=== PATIENT | male | born 2000 | race Caucasian/White ===

== ENCOUNTER 2019-09-22 08:21 | Inpatient (IN) | payer OTHER ==
[2019-09-22] VITALS (8 sets, daily range): BP systolic 71–179; BP diastolic 39–86
[~2019-09-22] VITALS: Ht 177.8 cm; Wt 70.5 kg
[2019-09-22] MEDS ORDERED: LIDOCAINE 2%HCL (LOCAL ANESTH.) INJ 20ML MDV ONE (08:43)
[2019-09-22] MEDS: MIDAZOLAM DRIP 50 mg/50mL 50 ML IV SCH ×2 (08:47→20:13)
[2019-09-22] MEDS ORDERED: LIDOCAINE 2%HCL (LOCAL ANESTH.) INJ 10ml MDV IJ ONE (09:00)
[2019-09-22] MEDS ORDERED: cefTRIAXone 1GM/50ML D5W 50 ML IV ONE (09:15)
[2019-09-22] MEDS ORDERED: AZITHROMYCIN 500MG/ 250ML 250 ML IV ONE (09:15)
[2019-09-22 09:30] LABS: Urine Bacteria NONE SEEN /hpf (None Seen); Urine Blood TRACE /uL (Negative); Urine Hyaline Cast MOD /lpf (0 - 2); Urine Mucus FEW (None Seen); Urine Specific Gravity 1.022 (1.001-1.035); Urine WBC 4 /hpf (0 - 3)
[2019-09-22 09:34] LABS: Hemoglobin 14.9 g/dL (13.5-17.5); Mean Corpuscular Hemoglobin 30.1 pg (28.0-32.0); Platelet Count (auto) 518 10^3/uL (140-450)
[2019-09-22 09:36] LABS: Hematocrit 47.7 % (41.0-53.0); Mean Corpuscular Hgb Conc. 31.2 g/dL (32.0-36.0); Mean Corpuscular Volume 96.5 fL (80.0-100.0); Red Blood Cells 4.94 10^6/uL (4.5-5.90)
[2019-09-22 09:45] LABS: Albumin 4.2 g/dL (3.4-5.0); Anion Gap 16 (5-15); Blood Alcohol < 3.0 mg/dL (0-5); Blood Urea Nitrogen 25 mg/dL (7-18); Calcium 8.5 mg/dL (8.5-10.1); Carbon Dioxide 20 mmol/L (21-32); Chloride 103 mmol/L (98-107); Glucose 195 mg/dL (74-106); Salicylate < 1.7 mg/dL (2.8-20.0); Sodium 139 mmol/L (136-145); White Blood Cell 32.1 10^3/uL (4.4-10.8)
[2019-09-22 09:46] LABS: Alcohol, Urine < 3.0 mg/dL (0-10); Amphetamine Screen, Urine NEGATIVE (NEGATIVE); Barbiturate Scree,Urine NEGATIVE (NEGATIVE); Benzodiazephine Screen, Urine POSITIVE (NEGATIVE); Cannabinoid Screen, Urine POSITIVE (NEGATIVE); Cocaine Screen, Urine NEGATIVE (NEGATIVE); Opiate Scree,Urine NEGATIVE (NEGATIVE); Phencyclidine Screen, Urine NEGATIVE (NEGATIVE)
[2019-09-22 09:47] LABS: Basophils % (manual) 0 (0.0-2.0); Blast Cells 0; Eosinophils % (manual) 0 (0-7); Metamyelocytes % 0; Myelocytes % 0; Promyelocytes % 0; Reactive Lymphocytes 0
[2019-09-22 09:48] LABS: Alanine Aminotransferase 32 U/L (16-61); Aspartate Aminotransferase 38 U/L (15-37); GFR African American 58 mL/min; GFR Non-African American 48 mL/min
[2019-09-22 09:49] LABS: Alkaline Phosphatase 86 U/L (45-117); Bilirubin, Total 0.4 mg/dL (0.2-1.0); Total Protein 8.3 g/dL (6.4-8.2)
[2019-09-22 09:53] LABS: Acetaminophen < 2.0 ug/mL (10-30)
[2019-09-22] MEDS ORDERED: SODIUM CHLORIDE 0.9% 2,000 ML IV ONE (10:00)
--- NOTE | 2019-09-22 10:40 | NUR ---
TRANSPORTED PT WITH NO INCIDENT REPORTED. PT ON TRANSPORT VENT AND AMBUBAG CONNECTED TO 02 TANK. SPO2 98%. RN AT BEDSIDE. WILL CONTINUE TO MONITOR.
[2019-09-22 10:50] LABS: Band Neutrophils % (manual) 10; Lymphocytes % (manual) 9 (10.0-50.0); Monocytes % (manual) 11 (0-12)
[2019-09-22] MEDS ORDERED: ALBUTEROL SULF 2.5 MG/0.5ML(0.5%) NEB SOLN NEB PRN (11:15)
[2019-09-22] MEDS ORDERED: MORPHINE SULF INJ 2 MG/ML SYRINGE 1ML IV PRN (11:15)
[2019-09-22] MEDS ORDERED: NITROGLYCERIN 0.4 MG SL TAB SL PRN (11:15)
[2019-09-22] MEDS ORDERED: SODIUM CHLORIDE 0.9% 1,000 ML IV ONE ×2 (11:15→14:15)
[2019-09-22] MEDS: SODIUM CHLORIDE 0.9% 1,000 ML IV SCH ×2 (12:16→18:23)
[2019-09-22] MEDS ORDERED: ACETAMINOPHEN 650 MG RECT SUPP PR ONE (12:30)
[2019-09-22] MEDS ORDERED: DANTROLENE SODIUM IV PRN ×4 (13:00→13:45)
[2019-09-22] MEDS ORDERED: ACETAMINOPHEN 650 MG RECT SUPP PR PRN (13:15)
[2019-09-22] MEDS ORDERED: DANTROLENE SODIUM IV ONE (13:30)
[2019-09-22] MEDS ORDERED: NOREPINEPHRINE 8 MG/250ML KIT 250 ML IV ONE (13:36)
[2019-09-22] MEDS: NOREPINEPHRINE 8 MG/250ML KIT 250 ML IV SCH ×2 (13:42→23:11)
[2019-09-22] MEDS: ALBUTEROL SULF 2.5 MG/0.5ML(0.5%) NEB SOLN NEB SCH ×2 (13:48→18:00)
[2019-09-22] MEDS: CLINDAMYCIN 600MG IV 50 ML IV SCH ×2 (14:25→22:01)
[2019-09-23] VITALS (80 sets, daily range): BP systolic 89–145; BP diastolic 22–85
[2019-09-23] MEDS: MIDAZOLAM DRIP 50 mg/50mL 50 ML IV SCH ×4 (00:48→18:30)
[2019-09-23] MEDS: SODIUM CHLORIDE 0.9% 1,000 ML IV SCH ×3 (00:53→21:39)
[2019-09-23] MEDS: ALBUTEROL SULF 2.5 MG/0.5ML(0.5%) NEB SOLN NEB SCH ×4 (01:13→18:14)
[2019-09-23 05:55] LABS: Basophils # (auto) 0 10 ^3/uL (0-0.2); Basophils % (auto) 0.1 % (0.0-2.0); Eosinophils # (auto) 0 10 ^3/uL (0-0.8); Eosinophils % (auto) 0.1 % (0.0-7.0); Hematocrit 44.2 % (41.0-53.0); Hemoglobin 14.5 g/dL (13.5-17.5); Lymphocytes # (auto) 0.8 10 ^3/uL (0.4-5.4); Mean Corpuscular Hemoglobin 30.2 pg (28.0-32.0); Mean Corpuscular Hgb Conc. 32.7 g/dL (32.0-36.0); Mean Corpuscular Volume 92.5 fL (80.0-100.0); Monocytes # (auto) 1.1 10 ^3/uL (0-1.3); Monocytes % (auto) 5.4 % (0.0-12.0); Neutrophils # (auto) 18.7 10 ^3/uL (1.6-8.6); Neutrophils % (auto) 90.4 % (37.0-80.0); Platelet Count (auto) 292 10^3/uL (140-450); Red Blood Cells 4.78 10^6/uL (4.5-5.90); Red Cell Distribution Width 12.7 % (11.8-14.3); White Blood Cell 20.6 10^3/uL (4.4-10.8)
--- NOTE | 2019-09-23 06:00 | NUR ---
PATIENT ARRIVED FROM ER VIA GURNEY, TRANSFERRED TO ICU BED AND CONNECTED TO VENTILATOR AND MONITOR. PT IS SEDATED LIGHTLY, RESTLESS AT TIMES, VERSED INCREASED TO 15 MG, MITTENS APPLIED BILAT. INITIAL VS ARE STABLE , RECTAL TEMP 98.9. PT ASSESSED, ORDERS REVIEWED, CARE PLAN INITIATED.
[2019-09-23 06:20] LABS: Potassium 4.5 mmol/L (3.5-5.1)
[2019-09-23 06:30] LABS: BUN/Creatinine Ratio 14.8; Bilirubin, Total 0.7 mg/dL (0.2-1.0); Calcium 7.6 mg/dL (8.5-10.1); Total Protein 5.9 g/dL (6.4-8.2)
[2019-09-23] MEDS: CLINDAMYCIN 600MG IV 50 ML IV SCH ×3 (06:30→21:40)
--- NOTE | 2019-09-23 06:45 | NUR ---
PATIENT ARRIVED FROM ER AT 06;00 AM, VIA GURNEY, TRANSFERRED TO ICU BED, LIGHTLY SEDATED ON VERSED INCREASED TO 14 MG/HR, MITTENS APPLIED DUE TO RESTLESSNESS. RECEIVED REPORT FROM VOLLEYBALL REFEREE, PT CONNECTED TO VENTILATOR AND SPANISH TEACHER. INITIAL VS STABLE. R -TEMP. 99.8
--- NOTE | 2019-09-23 06:51 | NUR ---
PT ASSESSED, IV SITES IDENTIFIED, CARE PLAN INITIATED.
--- NOTE | 2019-09-23 07:00 | NUR ---
Respiratory note: RECEIVED PATIENT ON RENTAL V200 VENT ORALLY INTUBATED WITH AN 8.0 ETT SECURED VIA KAILEY AT THE 24CM MARKING AT THE LIP, AND MECHANICALLY VENTILATED WITH THE CHARTED SETTINGS. SPO2 100%, LUNG SOUNDS CLEAR/DIM T/O, NO SECRETIONS WHEN SUCTIONED. SKIN IS WARM/DRY TO THE TOUCH AND IS INTACT NEAR KAILEY SITE. THERE IS A NGT IN THE RIGHT NARE AND IS SECURED TO THE NOSE. A RIGHT SUBCLAVIAN TRIPLE LUMEN CENTRAL LINE IS PLACED AND PATENT. NO EDEMA NOTED. PATIENT IS UNRESPONSIVE TO BOTH VERBAL/TACTILE STIMULI AND IS SEDATED ON VERSED DRIP. HE IS RESTING COMFORTABLY AND TOLERATING VENT WELL, NO CHANGES MADE. NO NEW AM CXR TO ASSESS. VENT PLUGGED INTO RED OUTLET AND ALL ALARMS ARE SET AND AUDIBLE. WILL CONTINUE TO ASSESS PATIENT WELL VENTILATOR FUNCTION. [employer] RUN INLINE.
--- NOTE | 2019-09-23 07:45 | NUR ---
Dr Singh visits and examines patient - no new orders received.
--- NOTE | 2019-09-23 08:57 | NUR ---
Patient's father phones - given update- verbalized understanding.
--- NOTE | 2019-09-23 09:15 | NUR ---
Crude Unit Operator spoke with patient's mother - received admission information. Addendum: 09/23/19 at 0223 by Marlene Weaver RN Amended: Links added.
[2019-09-23] MEDS: PROPOFOL 100 ML IV SCH ×2 (09:34→18:29)
[2019-09-23] MEDS ORDERED: PROPOFOL 100 ML IV ONE (09:41)
[2019-09-23] MEDS ORDERED: levoFLOXacin 500MG 100 ML IV SCH (10:00)
[2019-09-23] MEDS ORDERED: ENOXAPARIN SOD 30 MG/0.3 ML SYRINGE SC SCH (10:00)
--- NOTE | 2019-09-23 10:00 | NUR ---
Temp 102.0 rectally - Dr Edwards at bedside - orders received, cooling measures started.
[2019-09-23] MEDS: PANTOPRAZOLE 40 MG/10 ML VIAL INJ IV SCH (10:08)
--- NOTE | 2019-09-23 10:15 | NUR ---
ELECTROENCEPHALOGRAM EEG COMPLETED AT BEDSIDE. PRIMARY RN KYLEE AWARE.
[2019-09-23 10:45] LABS: INR 1.54 (0.9-1.15)
[2019-09-23 10:53] LABS: Magnesium 1.4 mg/dL (1.6-2.6); Phosphorus 2.1 mg/dL (2.5-4.90)
--- NOTE | 2019-09-23 10:54 | NUR ---
WOUND CARE NOTE: Wound care in to see patient due to intubation status and skin integrity issue that are noted present on admission. Bedside nurse took photograph of patient's skin issue upon admission for reference. Patient is 18 years old male with admitting diagnosis of Acute Resp Failure, ALOC, Encephalopathy, Drug O.D. Patient is resting in ICU bed in Rm. 111. Patient is intubated,sedated and mechanically ventilated. Patient appears to be in no pain using Rhodes Up Faces Pain Scale. His Joaquin score is 14. Skin assessment done with the assistance of patient's nurse, ELIAS Rosario. Patient's distal sacrum down to coccyx area has 4.5x3cm dark red brown, non-blanchable skin, appears to be Stage 1 pressure injury. No reports of how patient found altered or must have laying on something. Dr. Garcia arrived at bedside to see patient and seen sacral skin issue. Cleansed patient's sacrum with mild soap and water,patted dry, applied TZ Guard cream and covered with Opti foam sacral dressing per MD order. Repositioned patient for comfort facing his Lt side, redistributed pressure points with pillows. Patient tolerated well. ELIAS Rosario at bedside. RECOMMENDATION: Nursing to continue with BID/PRN cleaning and application of Z Guard cream to sacrum per MD order, frequent turning and repositioning schedule as condition permits, redistribute pressure points with pillows, elevate heels on pillows, continue monitoring by wound care while patient is hospitalized. Addendum: 09/23/19 at 1159 by Janet Rios RN Amended: Links added. Addendum: 09/23/19 at 1201 by Janet Rios RN Patient also noted with scabbed abrasion to Rt lateral knee and L dorsal knee, area is clean and dry,left open to air.
--- NOTE | 2019-09-23 11:15 | NUR ---
Dr medel visits and examines patient - orders received.
[2019-09-23 11:19] LABS: Lactic Acid w/Reflex 2.4 mmol/L (0.4-2.0)
[2019-09-23] MEDS ORDERED: SODIUM PHOSPHATES 24 MEQ in SODIUM CHL 0.9% 100 ML IV ONE (12:30)
[2019-09-23] MEDS: ALBUMIN 25% 100 ML IV SCH ×2 (12:35→18:50)
--- NOTE | 2019-09-23 12:45 | NUR ---
Patient's father Lm ramirez - states he spoke with patient's friend about overdose incident - states friend told him that patient "had fentanyl powder on his hands and was licking it off" - approx 15 min later friend states that he went to check on patient and found him unresponsive and making "choking" sounds. Friend states that he put patient in his car to take him to hospital and called 911 and was instructed to stay where he was and that EMS was on the way. Father states that he would continue to talk to patient's "friends" to find out exactly what happened before patient became unresponsive.
[2019-09-23] MEDS: MAGNESIUM SULFATE 1GM/100ML 100 ML IV SCH ×2 (13:00→16:21)
--- NOTE | 2019-09-23 18:30 | NUR ---
Patient's mother phones - update given.
--- NOTE | 2019-09-23 19:00 | NUR ---
Patient repositioned with oral care given - HR sustained at 133-142 - Dr Bashir notified - orders received. BP 132/68 - Levophed stopped. Will continue to monitor HR.
[2019-09-23] MEDS ORDERED: METOPROLOL TARTRATE 1MG/1ML-5ML VIAL IV PRN (19:15)
--- NOTE | 2019-09-23 19:24 | NUR ---
HR remains ST 127-130. Temp 100.6
--- NOTE | 2019-09-23 19:30 | NUR ---
ASSESSMENT RECEIVED REPORT FROM KYLEE GRIFFIN.PATIENT IS DEEPLY SEDATED WITH VERSED 10MG/HR, PROPOFOL 20 MCG/KG/MIN. PUPILS ARE REACTIVE, POSITIVE GAG AND COUGH AND HE WITHDRAWS TO PAIN. PATIENT IS HYPERTHERMIC AND COOLING MEASURES ARE IN PLACE. HE IS ON VENT. LUNGS SOUNDS ARE CLEAR.
[2019-09-24] VITALS (102 sets, daily range): BP systolic 89–143; BP diastolic 27–87
[2019-09-24] MEDS: MIDAZOLAM DRIP 50 mg/50mL 50 ML IV SCH ×3 (00:09→17:54)
[2019-09-24] MEDS: ALBUTEROL SULF 2.5 MG/0.5ML(0.5%) NEB SOLN NEB SCH ×4 (00:21→18:15)
[2019-09-24] MEDS: ALBUMIN 25% 100 ML IV SCH (02:58)
[2019-09-24] MEDS: PROPOFOL 100 ML IV SCH ×2 (03:03→17:54)
--- NOTE | 2019-09-24 04:15 | NUR ---
Patient bathe Patient given complete bath. Skin integrity assessed for any changes. Patient repositioned for comfort.
[2019-09-24 04:31] LABS: Basophils # (auto) 0 10 ^3/uL (0-0.2); Basophils % (auto) 0.1 % (0.0-2.0); Eosinophils # (auto) 0.1 10 ^3/uL (0-0.8); Eosinophils % (auto) 0.7 % (0.0-7.0); Hematocrit 34.5 % (41.0-53.0); Hemoglobin 11.3 g/dL (13.5-17.5); Lymphocytes # (auto) 0.9 10 ^3/uL (0.4-5.4); Lymphocytes % (auto) 7.4 % (10.0-50.0); Mean Corpuscular Hemoglobin 30.3 pg (28.0-32.0); Mean Corpuscular Hgb Conc. 32.7 g/dL (32.0-36.0); Mean Corpuscular Volume 92.6 fL (80.0-100.0); Monocytes # (auto) 0.6 10 ^3/uL (0-1.3); Neutrophils # (auto) 10.7 10 ^3/uL (1.6-8.6); Neutrophils % (auto) 86.8 % (37.0-80.0); Nucleated Red Blood Cells % 0.1 %; Platelet Count (auto) 219 10^3/uL (140-450); Red Blood Cells 3.73 10^6/uL (4.5-5.90); Red Cell Distribution Width 12.5 % (11.8-14.3); White Blood Cell 12.3 10^3/uL (4.4-10.8)
[2019-09-24 04:55] LABS: Potassium 3.4 mmol/L (3.5-5.1)
[2019-09-24 05:01] LABS: Albumin 3.3 g/dL (3.4-5.0); Bilirubin, Total 0.9 mg/dL (0.2-1.0); Total Protein 6.1 g/dL (6.4-8.2)
[2019-09-24] MEDS: SODIUM CHLORIDE 0.9% 1,000 ML IV SCH ×2 (05:45→09:26)
[2019-09-24] MEDS: CLINDAMYCIN 600MG IV 50 ML IV SCH ×3 (05:46→22:21)
[2019-09-24] MEDS: fentaNYL Drip 2500mCg/250mlNS 250 ML IV SCH ×2 (08:12→09:25)
--- NOTE | 2019-09-24 08:35 | NUR ---
DR. SELBY AT BEDSIDE: UPDATE MD UPDATED ON PT'S CURRENT STATUS, LABS AND POC FOR TODAY. MD STATES PATIENT MAY TRY AND DO CPAP TRIAL LATER ON TODAY, IF OKAY WITH DR. FREDERICK. INFORMED ON PT'S TRENDING TEMPERATURES. CONTINUE CARE.
--- NOTE | 2019-09-24 09:20 | NUR ---
DR. FREDERICK AT BEDSIDE: ORDERS MD UPDATED ON PT'S CURRENT STATUS, LABS, CXR AND POC FOR TODAY. ORDERS GIVEN FOR CPAP TRIAL LATER ON TODAY. WILL START WEANING OFF VERSED GTT FIRST, FOR SEDATION, THEN DIPRIVAN. TITRATING SLOWLY TOLERATED. CONTINUE CARE. TALKED WITH Sofia
--- NOTE | 2019-09-24 09:45 | NUR ---
FAMILY CALLED: UPDATE TALKED WITH PATIENT'S FATHER, GETACHEW. UPDATED HIM ON PT'S CURRENT STATUS AND POC FOR TODAY. POSSIBLE CPAP TRIAL LATER ON TODAY. WILL CONTINUE CARE.
[2019-09-24] MEDS: PANTOPRAZOLE 40 MG/10 ML VIAL INJ IV SCH (09:54)
[2019-09-24] MEDS: ENOXAPARIN SOD 30 MG/0.3 ML SYRINGE SC SCH (09:54)
[2019-09-24] MEDS: levoFLOXacin 750MG 150 ML IV SCH (09:54)
--- NOTE | 2019-09-24 12:00 | NUR ---
ALL SEDATION TURNED OFF AT THIS TIME PER DR. VEGA. CPAP TO BE STARTED PRE-PROTOCOL ONCE ABLE TO FOLLOW COMMANDS. WILL CONTINUE TO MONITOR CLOSELY. R.T. INFORMED. CONTINUE CARE.
--- NOTE | 2019-09-24 12:30 | NUR ---
CPAP TRIAL FAILED Initiated CPAP trial as ordered, pt tolerated 5 minutes, failed trial due to increased RR 35, increased HR 135, pt also started shivering. Placed pt back on AC mode previous settings, RN at bedside to restart sedation. Will continue to monitor.
--- NOTE | 2019-09-24 12:30 | NUR ---
RESTARTED SEDATION: FAILED CPAP TRIAL : DR. VEGA INFORMED RESTARTED VERSED AND DIPRIVAN GTT. VERSED AT 10 MG/HR, DIPRIVAN AT 30 MCG/KG/MIN. SEE V/S FLOW SHEET. WILL CONTINUE TO MONITOR.
--- NOTE | 2019-09-24 12:45 | NUR ---
MEDNEB TX HELD Albuterol medneb tx held at this time due to tachycardia HR 123. Will continue to monitor.
[2019-09-24] MEDS: NOREPINEPHRINE 8 MG/250ML KIT 250 ML IV SCH ×2 (13:16→13:24)
--- NOTE | 2019-09-24 13:20 | NUR ---
LEVOPHED GTT STARTED AT THIS TIME: BP 88/39, HR 88 WILL CONTINUE TO MONITOR, MD'S TO BE INFORMED.
--- NOTE | 2019-09-24 13:40 | NUR ---
FAMILY CALLED:UPDATED TALKED WITH PATIENT'S MOTHER OVER THE PHONE. UPDATED HER ON PT'S STATUS AND FAILED CPAP TRIAL FROM EARLIER TODAY. POSSIBLE CPAP IN AM. WILL CONTINUE TO MONITOR PATIENT. CONTINUE CARE.
--- NOTE | 2019-09-24 14:35 | NUR ---
Nutrition Assessment Notes Please refer to link for full assessment notes. Est Energy needs: 4634-1812 kcals (25-30 kcal/kgBW) Est Protein needs: 61-76 gms/day (0.8-1.0 gm/kgBW) Will continue to monitor and reassess prn. Addendum: 09/24/19 at [address] Amended: Links added.
--- NOTE | 2019-09-24 21:30 | NUR ---
SEDATION VACATION PATIENT WAS UNAROUSABLE AT 1999 ON INITIAL ASSESSMENT. SEDATION TURNED OFF TO CHECK NEURO STATUS. NOW PATIENT IS RESTLESS, COUGHING BUT NOT FOLLOWING ANY COMMANDS. PROPOFOL DRIP RESTARTED. WILL MONITOR THE SEDATION STATUS.
[2019-09-24] MEDS: POTASSIUM EFFERVESENT TAB 25 MEQ PO SCH (22:20)
--- NOTE | 2019-09-24 23:44 | NUR ---
POISON CONTROL RECEIVED PHONE CALL FROM [facility]ISON CONTR[facility]. VITAL SIGNS AND LAB REPORT ARE GIVEN. RECOMMENDED TO ORDER CREATINE KINASE.
[2019-09-25] VITALS (106 sets, daily range): BP systolic 98–152; BP diastolic 43–97
[2019-09-25] MEDS: ALBUTEROL SULF 2.5 MG/0.5ML(0.5%) NEB SOLN NEB SCH ×4 (00:05→18:23)
[2019-09-25] MEDS: PROPOFOL 100 ML IV SCH ×2 (02:24→08:29)
--- NOTE | 2019-09-25 03:45 | NUR ---
Patient bathe/linen change Patient given complete bath. Skin integrity assessed for any changes. Linens changed. Patient repositioned for comfort.
[2019-09-25] MEDS: CLINDAMYCIN 600MG IV 50 ML IV SCH ×3 (05:39→22:00)
[2019-09-25 05:51] LABS: Basophils # (auto) 0 10 ^3/uL (0-0.2); Basophils % (auto) 0.2 % (0.0-2.0); Eosinophils # (auto) 0.2 10 ^3/uL (0-0.8); Eosinophils % (auto) 1.8 % (0.0-7.0); Lymphocytes # (auto) 0.8 10 ^3/uL (0.4-5.4); Lymphocytes % (auto) 6.7 % (10.0-50.0); Mean Corpuscular Hemoglobin 30.6 pg (28.0-32.0); Mean Corpuscular Hgb Conc. 33.4 g/dL (32.0-36.0); Mean Corpuscular Volume 91.6 fL (80.0-100.0); Monocytes # (auto) 0.6 10 ^3/uL (0-1.3); Monocytes % (auto) 4.9 % (0.0-12.0); Neutrophils % (auto) 86.4 % (37.0-80.0); Platelet Count (auto) 252 10^3/uL (140-450); Red Cell Distribution Width 12.4 % (11.8-14.3); White Blood Cell 11.6 10^3/uL (4.4-10.8)
[2019-09-25 06:12] LABS: Albumin 3.1 g/dL (3.4-5.0); Calcium 8.6 mg/dL (8.5-10.1); Potassium 3.1 mmol/L (3.5-5.1)
[2019-09-25 06:18] LABS: BUN/Creatinine Ratio 13.4; Bilirubin, Total 0.8 mg/dL (0.2-1.0); Total Protein 6.3 g/dL (6.4-8.2)
--- NOTE | 2019-09-25 08:00 | NUR ---
AM ASSESSMENT COMPLETED PT REMAINS ON PROPOFOL WEANING OFF SEDATION TO BE PLACED PN PRECEDEX TO KEEP HIM CALM. THE GOAL IS TO WAKE HIM UP AND TO DO CPAP TRIAL IF POSSIBLE. VSS, AFEBRILE. LS CLEAR CTA. COPIOUS ORAL SECRETIONS SUCTIONED THROUGH MOUTH AND ETT. ORAL CARE RENDERED. REPOSITIONED FOR COMFORT. BED BATH GIVEN. PT HAD A LARGE LOSE BM. ALL MONITOR ALARMS VERIFIED.
[2019-09-25] MEDS ORDERED: POTASSIUM CHLORIDE 20 MEQ, LIDOCAINE 1% (LOCAL ANESTH.) 2 ML in SODIUM CHL 0.9% 100 ML IV ONE (09:15)
[2019-09-25] MEDS ORDERED: POTASSIUM CHL 20MEQ/100ML 100 ML IV ONE ×2 (09:15→12:45)
[2019-09-25 09:26] LABS: Magnesium 2.2 mg/dL (1.6-2.6); Phosphorus 2.6 mg/dL (2.5-4.90)
[2019-09-25] MEDS: fentaNYL Drip 2500mCg/250mlNS 250 ML IV SCH (09:34)
[2019-09-25] MEDS: levoFLOXacin 750MG 150 ML IV SCH (10:14)
[2019-09-25] MEDS: PANTOPRAZOLE 40 MG/10 ML VIAL INJ IV SCH (10:14)
[2019-09-25] MEDS: POTASSIUM EFFERVESENT TAB 25 MEQ PO SCH ×2 (10:14→22:00)
[2019-09-25] MEDS: ENOXAPARIN SOD 30 MG/0.3 ML SYRINGE SC SCH (10:16)
[2019-09-25] MEDS: DexMEDEtomidine 400 MCG in D5W 5% 96 ML IV SCH ×2 (10:19→23:00)
--- NOTE | 2019-09-25 11:00 | NUR ---
PT CXR REVIEWED BY MYSELF, AND DR FREDERICK. ETT PLACEMENT IS IN ADEQUATE POSITION. NO NEED TO ADVANCE AT THIS TIME. PT IS RECEIVING ALL VOLUMES, AND IS VENTILATING, AND OXYGENATING ADEQUATELY. RN MADE AWARE. WILL CONTINUE TO MONITOR PT. WILL ENDORSE TO DIRECTOR SPECIALTY RT.
--- NOTE | 2019-09-25 12:00 | NUR ---
PT VOMITED WHEN BATHING HIM . NGT PLACED TO SUCTION , ALL EFFERIENT CAME OUT. I NOTIFIED DR. VEGA , [facility] IV ORDERED.
--- NOTE | 2019-09-25 12:57 | NUR ---
POISON CONTROL CALLED TO GET N UPDATE ON PT'S CONDITION ( KIRA) CALLED TO COLLECT PT'S INFORMATION AND COLLECT PT'S DATA.
[2019-09-25] MEDS: NOREPINEPHRINE 8 MG/250ML KIT 250 ML IV SCH (13:48)
--- NOTE | 2019-09-25 14:45 | NUR ---
PT OFF SEDATION SINCE 10A.M., AND PLACED ON PRECEDEX. PT CONTINUES TO BE UNRESPONSIVE TO VERBAL COMMANDS. CPAP TRIAL RESUMED WHEN PT IS MORE AWAKE, AND ABLE TO FOLLOW COMMANDS. RN AWARE. WILL ENDORSE PT STATUS TO NORMALIZER.
--- NOTE | 2019-09-25 19:00 | NUR ---
REPORT GIVEN TO ELIAS GARCIA, SHE WILL ADDRESS PT'S LOW GRADE TEMP.
--- NOTE | 2019-09-25 20:00 | NUR ---
ADMITTED ON AFTER FRIENDS NOTICED THAT HE COULD NOT WAKE UP. INTUBATED AND BROUGHT TO ICU. + FOR BENZO AND + FOR CANNABIS. HAD BEEN SNIFFING PAINT. INHALED FENTANYL? POISON CONTROL INVOLVED. HISTORY OF ASTHMA. PLAN FOR CPAP TOMORROW. ON PRECEDEX. NGT RIGHT NARE TO LIS. LEVEL MARKED ON CANNISTER. POTASSIUM LOW TODAY. REPLACEMENT BEING GIVEN. SKIN TEAR ON SACRUM. RAC AND LAC 18 G. RIGHT SUBCLAVIAN TRIPLE LUMEN CATHETER WITH NORMAL SALINE TKO AND PRECEDEX. EEG DONE TWICE. CONSULTANTS SOLA AND OTONIEL. CR KINASE NORMAL. TEMP 100.1. COMING DOWN. SHEETS OFF OF PATIENT.ALL PULSES PALPABLE. NO PERIPHERAL EDEMA. NAVARRO IN PLACE DRAINING CLEAR YELLOW LIQUID TO DOWN DRAIN BAG. RESPIRATORY CULTURE POSITIVE.
--- NOTE | 2019-09-25 22:00 | NUR ---
WAKES UP EASILY. STRONG COUGH LIFTING TORSO OFF BED. HAVE INCREASED THE SEDATION 4 X. 99% OF THE TIME HE IS QUIET. LUNGS CLEAR. NOTHING SUCTIONED FROM THE ETT. ORAL CARE DONE. ABDOMEN SOFT. ADEQUATE URINE OUTPUT. IV IN RAC, LAC FLUSHED WITH 5CC OF NORMAL SALINE. NO REDNESS, SWELLING OR DRNG AT SITE. RIGHT SUBCLAVIAN SITE CLEAN, DRY. GERONIMO. ONLY ON PRECEDEX.
[2019-09-26] VITALS (53 sets, daily range): BP systolic 111–144; BP diastolic 52–88
--- NOTE | 2019-09-26 | NUR ---
MORE QUIET NOW. NOT COUGHING MUCH. NSR WITHOUT ECTOPY. NO VENTILATOR CHANGES. O2 SAT 100%. URINE OUTPUT GOOD. IV SITES SHOW NO REDNESS OR SWELLING. TEMP NORMAL NOW.
[2019-09-26] MEDS: ALBUTEROL SULF 2.5 MG/0.5ML(0.5%) NEB SOLN NEB SCH ×4 (00:08→18:07)
--- NOTE | 2019-09-26 02:00 | NUR ---
VSS. NSR WITHOUT ECTOPY. SBP NORMAL. O2 SAT 100% OCCASIONALLY MOVES HIS ARMS. NO VENTILATOR CHANGES.
--- NOTE | 2019-09-26 02:34 | NUR ---
CHG BATH. PARTIAL LINEN CHANGE. ORAL CARE.
--- NOTE | 2019-09-26 04:00 | NUR ---
TURNED DOWN THE PRECEDEX TO 0.4 AND HE WOKE UP , COUGHING, RAISING ARMS. PLACED BACK ON 0.5 PRECEDEX. SUCTIONED FOR CREAMY SECRETIONS. ORAL CARE DONE. NSR WITHOUT ECTOPY.
[2019-09-26 05:23] LABS: Basophils # (auto) 0 10 ^3/uL (0-0.2); Basophils % (auto) 0.1 % (0.0-2.0); Eosinophils # (auto) 0.2 10 ^3/uL (0-0.8); Eosinophils % (auto) 1.8 % (0.0-7.0); Hematocrit 33.8 % (41.0-53.0); Hemoglobin 11.7 g/dL (13.5-17.5); Lymphocytes # (auto) 0.7 10 ^3/uL (0.4-5.4); Lymphocytes % (auto) 6.8 % (10.0-50.0); Mean Corpuscular Hemoglobin 31.4 pg (28.0-32.0); Mean Corpuscular Hgb Conc. 34.5 g/dL (32.0-36.0); Mean Corpuscular Volume 90.8 fL (80.0-100.0); Monocytes # (auto) 0.9 10 ^3/uL (0-1.3); Monocytes % (auto) 8.8 % (0.0-12.0); Neutrophils # (auto) 8.2 10 ^3/uL (1.6-8.6); Neutrophils % (auto) 82.5 % (37.0-80.0); Platelet Count (auto) 288 10^3/uL (140-450); Red Blood Cells 3.72 10^6/uL (4.5-5.90); Red Cell Distribution Width 12.4 % (11.8-14.3)
[2019-09-26] MEDS: CLINDAMYCIN 600MG IV 50 ML IV SCH ×3 (05:29→22:27)
--- NOTE | 2019-09-26 05:30 | NUR ---
PATIENT IS NOT LISTENING TO OUR SUGGESTION TO LEAVE THE ETT ALONE. HE TRIED TO PULL IT OUT. INCREASED THE PRECEDEX.
[2019-09-26] MEDS ORDERED: SODIUM CHLORIDE 0.9 % NEB SOLN 3ML NEB ONE ×2 (05:40→14:14)
[2019-09-26 05:42] LABS: Potassium 3.1 mmol/L (3.5-5.1)
[2019-09-26 05:49] LABS: BUN/Creatinine Ratio 25.7; Calcium 8.6 mg/dL (8.5-10.1)
--- NOTE | 2019-09-26 08:00 | NUR ---
AM ASSESSMENT COMPLETED PT REMAINS INTUBATED, CURRENTLY OFF ALL SEDATION , JUST ON PRECEDEX AT 0.5 MCG/KG/HR PT AWAITING FOR CPAP TRIAL THIS AM. PT A LITTLE SLEEPY. WILL COME DOWN ON PRECEDEX TO WAKE HIM UP. PT WAKENS UP TO LOUD VOICE, FOLLOWS COMMANDS GERONIMO. THEN FALLS BACK TO SLEEP/ LS CTA. SUCTIONING CLEAR ORAL SECRETIONS AND NDIAYE ETT SECRETIONS. SR IN THE 70'S, NO ECTOPY, VSS , AFEBRILE. SKIN REMAINS UNCHANGED. SEE SKIN FLOW SHEET. REPOSITIONED FOR COMFORT. ORAL CARE PROVIDED. MONITOR ALARMS VERIFIED.
--- NOTE | 2019-09-26 09:20 | NUR ---
PT PLACED ON CPAP TRIAL BY RT. PT AWAKE FOLLOWING COMMANDS, PRECEDEX TITRATED DOWN TO 0.4 MCG/KG/HR AT THIS ANTIANXIETY LEVEL PT IS ABLE TO FOLLOW COMMANDS AND BE AWAKE. PT IS CRYING, GETS A LITTLE DISCOURAGED . I HAD TO BACKGROUND CHECK COORDINATOR HIM COUPLE TIMES ALONG WITH RT DEE. PT HAD TO BE SUCTIONED MULTIPLE TIMES. HR REMAINS STABLE IN THE 70'S RR IN THE 20'S SPO2 IN THE 100%. RT DEE WAS OBTAINING THE WEANING PARAMETERS.
[2019-09-26] MEDS: POTASSIUM EFFERVESENT TAB 25 MEQ PO SCH ×2 (10:00→22:27)
--- NOTE | 2019-09-26 10:28 | NUR ---
PT EXTUBATED BY RT DEE PLACED ON CM AT 40% NO STRIDOR, TACHYPNEIC, LS CLEAR. SPO2 IN THE UPPER 90'S.
[2019-09-26] MEDS: levoFLOXacin 750MG 150 ML IV SCH (10:55)
[2019-09-26] MEDS: PANTOPRAZOLE 40 MG/10 ML VIAL INJ IV SCH (10:55)
[2019-09-26] MEDS: ENOXAPARIN SOD 30 MG/0.3 ML SYRINGE SC SCH (10:56)
[2019-09-26] MEDS ORDERED: POTASSIUM CHLORIDE 40 MEQ, LIDOCAINE 1% (LOCAL ANESTH.) 4 ML in SODIUM CHL 0.9% 100 ML IV ONE (11:30)
--- NOTE | 2019-09-26 12:10 | NUR ---
assessment Patient is a 18 year old male who is on a vent in ICU. Per patients father Lm patient lives home with his mother and is independent. Per Lm patient has high functioning autism. Per Lm patient has had a hard up bringing and has gotten into some trouble lately. Lm informed me that patient lives in an apartment and does have running water. 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 I informed Lm we would do discharge planning once patient is extubated and prior to discharge. I will continue to monitor and follow up as appropriate. Lm verbalized understanding. Addendum: 09/26/19 at 1226 by Chio MAYA Amended: Links added.
--- NOTE | 2019-09-26 12:36 | NUR ---
Nutrition Followup Note Wt 70.5 kg Pt was on CPAP trial when rounded this am. pt is currently NPO with no new diet orders. Est Energy needs: 4919-6676 kcals (25-30 kcal/kgBW), Est Protein needs: 61-76 gms/day (0.8-1.0 gm/kgBW). Will continue to monitor and reassess prn. Labs: ALB 3.1 L. BM: Pt with no BM today per RN note Skin: BS 16 mod risk, full details in direct care provider note PES: 1) Increased nutrient needs aeb Pt is sedated, intubated, NPO r/t pt with no PO intake 2) Altered nutrition related lab values aeb hypoglycemia, hypocalcemia, mild hypoalbuminemia r/t current medical condition Comments: Continue to monitor NPO status, labs, skin. F/u high 2-3 days Rec: 1) Continue to carefully monitor pt NPO status. 2) If pt remains NPO for the next 48 hours, consider EN nutrition support Osmo;ite 1.2 @ 70 ml/hr goal rate as tolerated and per MD approval. 3) Gradually advance pt to oral Regular diet when medically feasible and as tolerated. 4) Continue current plan of care
--- NOTE | 2019-09-26 13:34 | NUR ---
04/26/19 9344 Faxed to [facility] face sheet, progress notes, requesting authorization for 09/27/2019.
--- NOTE | 2019-09-26 14:00 | NUR ---
BM ELIMINATION PT HAD A LARGE SMEAR BM. COMPLETE BED BATH GIVEN. ALL LINEN CHANGED, REPOSITIONED FOR COMFORT WITH HANK ALEXANDRE'S ASSISTANCE. ASSISTED PT WITH HIS FIRST CLEAR LIQUID DIET S/P EXTUBATION WITH ASPIRATION PRECAUTIONS. PT WAS ABLE TO SWALLOW WITHOUT COUGHING OR GAGING, PT ATE 90 % OF HIS DIET WITHOUT ANY DIFFICULTY, HE DID NOT LIKE THE SALTY SOUP. PT REMAINS ON COOL MIST AT 405, SPO2 REMAINS AT 100%.
--- NOTE | 2019-09-26 14:00 | NUR ---
09/26/2019 1400 Called [facility] and spoke with Mckenzie chowdary, verbalized they received the progress notes for today and she will send a message to Bessy Parker regarding the authorization for the patient, gave call back information for Bessy PARKER to call me Sapna Herring CM [phone].
--- NOTE | 2019-09-26 14:28 | NUR ---
09/26/19 1428 Received a call from Bessy PARKER at [facility] and gave a verbal update on the patient, Authorization given for in patient stay for 09/27/19 @ 1000 am #[id number]
--- NOTE | 2019-09-26 15:00 | NUR ---
NAVARRO REMOVED ORDERED PER MD AND PER PT'S REQUEST.
--- NOTE | 2019-09-26 15:26 | NUR ---
PT VOIDED ONE LARGE VOID ON BED MARIE AND THREW IT ON THE FLOOR. UNABLE TO MEASURE. 1ST VOID AFTER FC WAS REMOVED.
[2019-09-26] MEDS ORDERED: MORPHINE SULF INJ 2 MG/ML SYRINGE 1ML IV PRN (15:30)
--- NOTE | 2019-09-26 15:31 | NUR ---
PT WAS C/O SEVERE GENERALIZED BODY PAIN, I NOTIFIED DR. ORR, NEW ORDERS RECEIVED TO ADDRESS PT'S GENERALIZED PAIN.
[2019-09-26] MEDS: HYDROcodone-ACET 5/325MG TAB PO PRN ×2 (15:51→22:27)
--- NOTE | 2019-09-26 20:00 | NUR ---
ADMITTED ON 09/22/19 AFTER FRIENDS NOTICED THAT HE COULD NOT WAKE UP. INTUBATED AND BROUGHT TO ICU. + FOR BENZO AND + FOR CANNABIS. TONIGHT THE FATHER HAD SPOKE WITH HIS FRIEND THAT WAS WITH HIM. HE HAD FENTANYL POWDER AND HAD BEEN TAKING XANAX FREQUENTLY. HAD BEEN SNIFFING PAINT. THERE IS REMNANTS OF PAINT ON BOTH HIS HANDS. POISON CONTROL INVOLVED. HISTORY OF ASTHMA AND ASHBERGERS SYNDROME. EXTUBATED TODAY AT 1028. CURRENTLY ON ROOM AIR. O2 SAT IS 98%. KCL LOW. REPLACEMENT BEING GIVEN. SKIN TEAR ON SACRUM. RIGHT SUBCLAVIAN TRIPLE LUMEN CATHETER WITH NORMAL SALINE TKO . REMOVED THE TKO LINE AND FLUSHED ALL PORTS. HE IS ACTIVE IN THE BED AND REGULARLY GETS IT KINKED UNDER HIM. EEG DONE TWICE. CONSULTANTS SOLA AND OTONIEL. CR KINASE NORMAL. TEMP 98.5 ORALLY. HAD A FEVER YESTERDAY .ALL PULSES PALPABLE. NO PERIPHERAL EDEMA. NAVARRO REMOVED TODAY. HAD 500CC IN THE NAVARRO BAG AND WAS INCONTINENT X 3. EDUCATED HIM ON THE URINAL. RESPIRATORY CULTURE POSITIVE. ON CLEOCIN. ATE ALL OF HIS DINNER. RAILS UP. CALLED HIS DAD FOR HIM. HE IS REQUESTING HIS PHONE AND NO ONE IS AVAILABLE OR WILLING TO BRING IT TODAY. HE IS FRUSTRATED BY THAT. FATHER INFORMED ME THAT THE PATIENT HAS BEEN WORKING CONTINUOUSLY ON FIXING A MOBILE HOME TO SELL. HE HAS FINANCIAL COMMITMENTS THAT HE IS CONCERNED ABOUT. FATHER STATED HIS CONCERN THAT HE STAY IN A FACILITY WHERE HE IS AWAY FROM DRUGS FOR AWHILE.
--- NOTE | 2019-09-26 20:33 | NUR ---
FOUND PATIENT TRYING TO STAND UP IN BED AND CRAWL OUT. HE NEEDED TO USE THE BATHROOM. WALKED HIM TO THE COMMODE. HAD A LARGE BROWN LIQUID STOOL. HE IS NOT CAREFUL WITH HIS LINES. IS WOBBLY WHEN UP. . SAND POLISHER NOTIFIED OF DOWNGRADE ORDERS WITH A SITTER. I HAVEN'T BEEN OUT OF THE ROOM SINCE 1930. REQUESTING HELP.
--- NOTE | 2019-09-26 21:13 | NUR ---
PATIENT SAYS HE WANTS TO GET UP AND GO TO THE BATHROOM, CHANGES HIS MIND, FLIPS HIMSELF IN THE BED SO THAT HIS HEAD IS AT THE BOTTOM OF THE BED. LINES ARE A MESS AND HE MOVES CONTINUOUSLY. WAITING FOR THE SITTER. CANNOT LEAVE HIM ALONE. REPLACED THE PULSE OX. REPLACED HIS ELECTRODES.
--- NOTE | 2019-09-26 21:30 | NUR ---
SITTER IN ROOM. PATIENT RESTLESS.
--- NOTE | 2019-09-26 22:38 | NUR ---
RYAN FOR GENERALIZED PAIN
--- NOTE | 2019-09-26 22:40 | NUR ---
/REPORT CALLED TO ELIAS ROMERO. PATIENT IN WHEELCHAIR, ON TELEMETRY BOX. [place]
--- NOTE | 2019-09-26 22:55 | NUR ---
TRANSFER TO ROOM 278A: MESSAGE LEFT WITH FATHER. MOTHERS MESSAGE BOX WAS FULL
--- NOTE | 2019-09-26 23:00 | NUR ---
PATIENT ARRIVED TO ROOM 278A VIA WHEELCHAIR ACCOMPANIED BY NURSE GARCIA. PATIENT HAS NO BELONGINGS. PATIENT IS AWAKE ALERT AND ORIENTED X3 IN NO APPARENT CARDIAC OR PULMONARY DISTRESS OR SOB ON ROOM AIR.
--- NOTE | 2019-09-26 23:08 | NUR ---
PATIENT PLACED IN BED. RN AND NURSE TECH ACCEPTED PATIENT. NO BELONGINGS.
[2019-09-27] MEDS: ALBUTEROL SULF 2.5 MG/0.5ML(0.5%) NEB SOLN NEB SCH ×3 (00:05→11:56)
[2019-09-27 05:40] VITALS: BP 139/83
[2019-09-27] MEDS: CLINDAMYCIN 600MG IV 50 ML IV SCH (06:20)
--- NOTE | 2019-09-27 06:51 | NUR ---
PATIENT RESTING IN BED BUT ALERT AND AWAKE TO VERBAL COMMANDS. SITTER AT BEDSIDE. PATIENT TLC TO RIGHT SUBCLAVIAN PATENT AND INTACT. WILL CONTINUE TO MONITOR PATINET.
--- NOTE | 2019-09-27 07:35 | NUR ---
PATIENT ROUNDS PATIENT LYING IN BED, NO DISTRESS NOTED. BED IN LOWEST POSITION, SIDE RAILS UP X2, CALL LIGHT WITHIN REACH. WILL CONTINUE TO MONITOR. BUSINESS RISK CONSULTANT AT BEDSIDE.
--- NOTE | 2019-09-27 08:00 | NUR ---
DR GARY VEGA IN TO SEE PATIENT. NEW ORDER TO DC TELE, TELE PSCY CONSULT AND SOCIAL SERVICE CONSULT FOR TRANSFER TO [facility].
--- NOTE | 2019-09-27 08:20 | NUR ---
TELE #52 CLEANED AND RETURNED TO ICU, SECOND OFFICER CALLED AND NOTIFIED.
[2019-09-27 09:00] VITALS: BP 136/73
[2019-09-27] MEDS: ENOXAPARIN SOD 30 MG/0.3 ML SYRINGE SC SCH (09:46)
[2019-09-27] MEDS: PANTOPRAZOLE 40 MG/10 ML VIAL INJ IV SCH (09:46)
[2019-09-27] MEDS: POTASSIUM EFFERVESENT TAB 25 MEQ PO SCH (09:46)
[2019-09-27] MEDS: levoFLOXacin 750MG 150 ML IV SCH (09:46)
--- NOTE | 2019-09-27 10:26 | NUR ---
TELE PSYC MONITOR IN ROOM, FORM SUBMITTED, PATIENT EVALUATION BEING COMPLETED AT THIS TIME.
--- NOTE | 2019-09-27 11:32 | NUR ---
09/27/19 1135 Faxed to [facility], face sheet, progress notes, consults, Transfer to [facility] Request, labs, med list, COVID,X-rays, h&P, Post Stabilization, Requesting for transfer to [facility]
--- NOTE | 2019-09-27 11:42 | NUR ---
UPDATE TECH SPOKE WITH PATIENT, STILL WAITING FOR DOCTOR TO SPEAK WITH PATIENT. WILL CONTINUE TO MONITOR.
--- NOTE | 2019-09-27 12:25 | NUR ---
UPDATE PATIENT IS WANTING TO LEAVE HOSPITAL WITHOUT DISCHARGE ORDER, DR VEGA IS AWARE THAT PATIENT IS WANTING TO LEAVE BUT IS NOT MEDICALLY CLEARED. PATIENT IS PENDING A TELE PSYC CONSULT, CONSULT HAS BEEN COMPLETE BUT WE DO NOT HAVE A RESULT OF THE CONSULT, THERE IS NO 5150 HOLD ON PATIENT AT THIS TIME. WILL CONTINUE TO MONITOR SITUATION. BOOTH CASHIER AWARE OF UPDATE.
--- NOTE | 2019-09-27 12:50 | NUR ---
IV removal IV DC'd with clean sterile technique, catheter fully intact. Pressure dressing applied to site. Patient tolerated well. NOTE:
--- NOTE | 2019-09-27 12:52 | NUR ---
09/27/19 1252 Received a call from Bessy PARKER at [facility] and just gave updated information on pt the and stated she would call back.
--- NOTE | 2019-09-27 13:12 | NUR ---
AMA Note RENE PENDLETON states they want to leave the hospital Against Medical Advice (AMA). Patient encouraged to stay for further treatment/stabilization. DR VEGA notified of patient's wishes. Patient advised of the risks and benefits of leaving AMA. Patient verbalized understanding. Patient encouraged to return to the ER if symptoms do not improve or worsen.
--- NOTE | 2019-09-27 13:34 | NUR ---
CALLED: PER DR. VEGA PATIENTS FATHER GETACHEW CALLED HER UPSET THAT WE HAD LET THE PATIENT LEAVE STATING THAT HE HAD SUICIDAL IDEATIONS. I CALLED THE ROUND UP RING HAND AND INFORMED THEM OF THE SITUATION, THAT THE PATIENT LEFT PRIOR TO RECEIVING THE RECOMMENDATIONS FROM THE TELE PSYCH DOCTOR. INFORMED HEAD USHER OFFICE THAT THE PATIENT WAS NOT ON A HOLD AT THIS TIME, AND STATED HIS RIDE WAS DOWN STAIRS AND THAT HE WAS LEAVING. PER HEAD USHER OFFICE THEY WILL SEARCH THE SURROUNDING AREA OF THE HOSPITAL WELL NEAR THE PATIENTS HOME. SHE WAS PROVIDED WITH THE FATHERS FOLLOW UP NUMBER SO THAT THEY COULD CONTACT HIM IF NEEDED. INCIDENT NUMBER [id number]. DR. HAYWOOD INFORMED OF CONVERSATION WITH AND PRIMARY RN ANANTH HERNANDEZ.
--- NOTE | 2019-09-27 14:52 | NUR ---
TELE PSYC REPORT TELE PSYC REPORT HAS BEEN FAXED AND PLACED IN CHART. ANDROID ARCHITECT AND DR VEGA UPDATED ON REPORT.
== END 2019-09-27 13:12 | disposition left against medical advice (07) | DRG 871 ==
LOC: ER 08:21 → EDBD 08:21 → TELE 08:22 → EDBD 08:22 → ICU WEST 09-23 07:49 → TELE-WESTW 09-26 23:29 → WEST WING 09-27 08:02
PROVIDERS: ADMIT Internal Medicine; ATTEND Internal Medicine
PROC: 5A1945Z Respiratory Ventilation, 24-96 Consecutive Hours (ICD-10-PCS; principal; 2019-09-22)
PROC: 0BH17EZ Insertion of Endotracheal Airway into Trachea, Via Natural or Artificial Opening (ICD-10-PCS; 2019-09-22)
PROC: 02HV33Z Insertion of Infusion Device into Superior Vena Cava, Percutaneous Approach (ICD-10-PCS; 2019-09-22)
DX: A41.9 Sepsis, unspecified organism (principal); G92 Toxic encephalopathy; J15.211 Pneumonia due to Methicillin susceptible Staphylococcus aureus; R65.21 Severe sepsis with septic shock; N17.0 Acute kidney failure with tubular necrosis; J96.01 Acute respiratory failure with hypoxia; J96.02 Acute respiratory failure with hypercapnia; G21.0 Malignant neuroleptic syndrome; E44.1 Mild protein-calorie malnutrition; F84.5 Asperger's syndrome; G93.1 Anoxic brain damage, not elsewhere classified; B96.1 Klebsiella pneumoniae [K. pneumoniae] as the cause of diseases classified elsewhere; E87.6 Hypokalemia; F12.10 Cannabis abuse, uncomplicated; F20.9 Schizophrenia, unspecified; T40.2X1A Poisoning by other opioids, accidental (unintentional), initial encounter; T42.4X1A Poisoning by benzodiazepines, accidental (unintentional), initial encounter; T40.7X1A Poisoning by cannabis (derivatives), accidental (unintentional), initial encounter; Z20.828 Contact with and (suspected) exposure to other viral communicable diseases; Z68.22 Body mass index [BMI] 22.0-22.9, adult; Z88.1 Allergy status to other antibiotic agents; Y92.89 Other specified places as the place of occurrence of the external cause; Z82.49 Family history of ischemic heart disease and other diseases of the circulatory system; Z53.29 Procedure and treatment not carried out because of patient's decision for other reasons
CPT/HCPCS: 31500; 36415; 36600; 51702; 70450; 71045; 80048; 80053; 80307; 80320; 80329; 81001; 82550; 82805; 83605; 83735; 84100; 85007; 85025; 85027; 85610; 87040; 87070; 87077; 87081; 87086; 87186; 87205; 93005; 94002; 94003; 94640; 95819; 96365; 96366; 96368; 99291; C9113; G0378; J0696; J1956; J2001; J2250; J2704; J3480; J3490; J7060; P9047